=== PATIENT | male | born 1970 | race African-American/Black ===

== ENCOUNTER 2020-12-28 06:49 | Emergency (ER) | payer OTHER ==
[2020-12-28] MEDS ORDERED: hydrOXYzine 25 MG TAB ONE (07:31)
[2020-12-28] MEDS ORDERED: Famotidine 20 MG TAB ONE (07:31)
== END 2020-12-28 08:26 | disposition home or self-care (01) ==
LOC: BURERS 06:49
DX: T78.3XXA Angioneurotic edema, initial encounter (principal); I10 Essential (primary) hypertension
CPT/HCPCS: 99283